=== PATIENT | male | born 1980 | race Caucasian/White ===

== ENCOUNTER → 2018-03-21 17:34 | Outpatient (CLI) | payer BC ==
[~2018-03-21 17:34] MED LIST: HYDROCODONE-APA1 TAB PO; LISINOPRIL5 MG PO; OMEPRAZOLE40 MG PO; PERCOCET 10/3251 TA1 PO
[2018-04-22 09:48] VITALS: BMI 39.2
== END | disposition home or self-care (01) ==
LOC: D.MRI 17:34
DX: M25.561 Pain in right knee (principal)

== ENCOUNTER 2018-04-22 09:05 | Day surgery (SDC) | payer MEDICAID ==
[2018-04-19 09:33] LABS: HEMATOCRIT 46.8 % (42.0-54.0); HEMOGLOBIN 16.7 g/dL (13.5-17.5); MCH 31.6 pg (26.0-34.0); MCHC 35.7 g/dL (31.0-37.0); MCV 88.5 fL (80.0-100.0); MEAN PLATELET VOLUME 9.7 fL (7.4-10.4); RBC 5.29 10x6/uL (4.20-6.10); RDW 13.4 % (11.5-14.5); WBC 10.7 10x3/uL (4.8-10.8)
[~2018-04-22] VITALS: Ht 170.2 cm; Wt 113.4 kg
--- NOTE | ~2018-04-22 | OP ---
PATIENT NAME: FRANKLYN BENITEZ MEDICAL RECORD: [id number] :76 LOCATION:[facility] ADMISSION DATE: SURGEON: CURTIS WISE MD DATE OF OPERATION: 04/22/2018 PREOPERATIVE DIAGNOSIS: Recurrent medial meniscus tear of the left knee. POSTOPERATIVE DIAGNOSIS: Recurrent medial meniscus tear of the left knee. PROCEDURE: Arthroscopic partial medial meniscectomy of the left knee. SURGEON: Curtis Wise MD ANESTHESIA: General. INTRAOPERATIVE COMPLICATIONS: None. 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 Lateral compartment and patellofemoral compartment were pristine. OPERATIVE SUMMARY IN DETAIL: After obtaining the appropriate preoperative orthopedic surgery consent as well as anesthetic consultation, evaluation and clearance, the patient was brought to the operating room and placed on the operating table in supine position. After general laryngeal mask was administered, tourniquet was placed about the proximal aspect of the left lower extremity. Left lower extremity was then prepped and draped in routine sterile fashion. The leg was elevated and exsanguinated, and tourniquet was inflated to 350 mmHg. Routine inferolateral portal was established followed by superomedial portal and inferomedial portal. Diagnostic arthroscopy did reveal the above findings. A combination of arthroscopic meniscotome as well as an arthroscopic resector utilized to debride the meniscus back to stable meniscal elements. Having completed this, the knee was insufflated with 30 cc of 0.25% Marcaine and 80 mg of Depo-Medrol. Arthroscopy portals were closed in routine interrupted fashion using 4-0 Prolene. Sterile dressings were applied. The patient was awakened and taken to the recovery room in stable condition. All final needle and sponge counts were correct. TRANSINT:[id number] Voice Confirmation ID: [id number] DOCUMENT ID: [id number] CURTIS WISE MD at 1147 CC: [id number] DICTATION DATE: 04/22/18 1207 SHIPPING AND RECEIVING ASSISTANT: 04/22/18 1251 DEP [facility] 04/22/18 [place] [address]
[~2018-04-22 09:05] MED LIST changes: -PERCOCET 10/3251 TA1 PO
[2018-04-22 09:48] VITALS: BP 139/80; Ht 170.2 cm; Wt 113.4 kg
[2018-04-22] MEDS ORDERED: PERCOCET 10/3251 TA1 PO (12:04)
[2018-05-22] MEDS ORDERED: BACLOFEN20 M1 PO (14:10)
== END 2018-04-22 14:30 | disposition home or self-care (01) ==
LOC: D.OPS 09:05 → D.PAN 10:30 → D.OPS 10:45 → D.PAN 10:45 → D.OPS 11:30
PROVIDERS: Anesthesiology
DX: S83.232A Complex tear of medial meniscus, current injury, left knee, initial encounter (principal); Z01.812 Encounter for preprocedural laboratory examination

== ENCOUNTER 2018-05-23 09:10 | Day surgery (SDC) | payer BC ==
[2018-05-22 14:40] LABS: HEMATOCRIT 46.4 % (42.0-54.0); HEMOGLOBIN 16.8 g/dL (13.5-17.5); MCH 31.8 pg (26.0-34.0); MCHC 36.2 g/dL (31.0-37.0); MCV 87.9 fL (80.0-100.0); MEAN PLATELET VOLUME 9.4 fL (7.4-10.4); RBC 5.28 10x6/uL (4.20-6.10); RDW 12.9 % (11.5-14.5)
[~2018-05-23] VITALS: Ht 170.2 cm; Wt 113.4 kg
--- NOTE | ~2018-05-23 | OP ---
PATIENT NAME: FRANKLYN BENITEZ MEDICAL RECORD: [id number] :78 LOCATION:[facility] ADMISSION DATE: SURGEON: CURTIS WISE MD DATE OF OPERATION: 05/23/2018 PREOPERATIVE DIAGNOSES: 1. Medial meniscus tear of the right knee. 2. Posttraumatic arthritis of the left knee. PROCEDURE: 1. Arthroscopic partial medial meniscectomy of the right knee. 2. Intra-articular injection of the left knee. SURGEON: Curtis Wise MD ANESTHESIA: General. INTRAOPERATIVE COMPLICATIONS: None. SUMMARY OF PATHOLOGIC FINDINGS: The patient had a complex tear of the posterior horn of medial meniscus consistent with the preoperative diagnosis. OPERATIVE SUMMARY IN DETAIL: After obtaining the appropriate preoperative orthopedic surgery consent as well as anesthetic consultation, evaluation, and clearance, the patient was brought to the operating room and placed on the operating table in supine position. After adequate general laryngeal mask airway was administered, the patient's left knee was prepped and draped in routine sterile fashion. A combination of 10 cc of 0.25% Marcaine with 80 mg of Depo-Medrol were injected in the patient's left knee. Bandage was applied. At this point, the patient's right lower extremity was then prepped and draped in routine sterile fashion after a tourniquet was placed about the proximal aspect. The leg was elevated and exsanguinated, tourniquet was inflated to 350 mmHg. Routine inferolateral portal was established followed by superomedial portal and inferomedial portal. On diagnostic arthroscopy, the patient has generalized chondromalacia of the entire knee joint, grade I most places. No areas of grade II or III were noted; however, he has significant inflammatory properties of the knee in its entirety. The medial meniscus had a deep complex tear of the posterior horn of the medial meniscus. Combination of arthroscopic meniscotomes as well as resector was utilized to debride the posterior aspect of the right medial meniscus. This was taken down to stable meniscal elements. At this point, the knee was insufflated with 30 cc of 0.25% Marcaine with epinephrine and 80 mg of Depo-Medrol. Arthroscopy portals were closed in routine interrupted fashion using 4-0 Prolene. Sterile dressings were applied. Tourniquet was deflated. The patient was awakened and taken to recovery room in stable condition. All final needle and sponge counts were correct. TRANSINT:[id number] Voice Confirmation ID: [id number] DOCUMENT ID: [id number] OPERATIVE REPORT [id number] FRANKLYN BENITEZ MD, CURTIS SOTELO at 1114 CC: [id number] DICTATION DATE: 05/24/18 1102 COPPER PLATE PRINTER: 05/24/18 1111 [facility] 05/23/18 [place] [id number]
[~2018-05-23 09:10] MED LIST changes: +BACLOFEN20 M1 PO; +PERCOCET 10/3251 TA1 PO
[2018-05-23 11:19] VITALS: BP 130/88; Ht 170.2 cm; Wt 113.4 kg
[2018-05-23] MEDS ORDERED: DILAUDID4 MG PO (13:33)
== END 2018-05-23 15:15 | disposition home or self-care (01) ==
LOC: D.OPS 09:10 → D.PAN 11:45 → D.OPS 15:15 → D.PAN 17:25 → D.OPS 17:45 → D.PAN 17:45
PROVIDERS: Anesthesiology
DX: S83.231A Complex tear of medial meniscus, current injury, right knee, initial encounter (principal); M12.562 Traumatic arthropathy, left knee; X58.XXXA Exposure to other specified factors, initial encounter; Z01.812 Encounter for preprocedural laboratory examination

== ENCOUNTER → 2018-07-30 14:16 | Outpatient (CLI) | payer BC ==
[2018-05-23 11:19] VITALS: BMI 39.2
[~2018-07-30 14:16] MED LIST changes: +DILAUDID4 MG PO; +ELIQUIS2.5 MG PO; -LISINOPRIL5 MG PO; +MOBIC7.5 MG PO; +NORCO 10-325 TA1 TAB PO; +ZESTRIL10 MG PO
== END | disposition home or self-care (01) ==
LOC: D.LABREF 14:16
DX: M17.0 Bilateral primary osteoarthritis of knee (principal); Z11.8 Encounter for screening for other infectious and parasitic diseases

== ENCOUNTER 2018-08-14 10:00 | Inpatient (IN) | payer BC ==
[~2018-08-14] VITALS: Ht 170.2 cm; Wt 113.6 kg
--- NOTE | ~2018-08-14 | OP ---
PATIENT NAME: FRANKLYN BENITEZ MEDICAL RECORD: [id number] :78 LOCATION:[id number] ADMISSION DATE:08/19/18 SURGEON: CURTIS WISE MD DATE OF OPERATION: 08/19/2018 PREOPERATIVE DIAGNOSIS: Bilateral osteoarthritis. POSTOPERATIVE DIAGNOSIS: Bilateral inflammatory arthritis. PROCEDURE: Bilateral total knee arthroplasty. SURGEON: Curtis Wise MD TUBE PULLER: Lázaro Paredes APN OPERATIVE SUMMARY IN DETAIL: After obtaining the appropriate preoperative orthopedic surgery consent as well as anesthetic consultation, evaluation, and clearance, the patient was brought to the operating room and placed on the operating table in supine position. After adequate general laryngeal mask airway was administered, tourniquet was placed on bilateral lower extremities. Bilateral lower extremities were then prepped and draped in routine sterile fashion. Attention was first turned to the right leg. The right leg was elevated and exsanguinated, tourniquet was inflated to 350 mmHg. Approach to the knee was done by Lázaro Paredes APN taking down for paramedian arthrotomy, which was performed. The patella was everted and the femur was flexed. At this point, surgical excision of all soft tissues was followed by creation of intramedullary guidewire for distal femoral cut. Distal femoral cut was made. This was followed by complete exposure of the proximal tibia. Further soft tissues were removed and intramedullary guide hole was created for intramedullary guided tibial cut. Tibial cut was then made. Appropriate measurements were made and the chamfer cuts of the distal femur were made. Having completed this, trials were put into place corresponding to the final implants. This was taken through range of motion and found to be good and stable in all planes. Having completed this, the final distal femoral and proximal tibial preparations were made for implants. Given the patient had an inflammatory component of arthritis; however, very good bone, I do feel like it was reasonable to resurface the patella. The patella was cut and prepared for final implantation. A press-fit total knee arthroplasty was then performed on these cuts. The final components were put into place. The knee was taken through range of motion and on the right side the patient had some maltracking of the patella. A lateral release was performed. Having completed this, copious irrigation was then followed by closure of the knee by Lázaro Paredes as well as closure of the skin with #1 Vicryl, 2-0 Vicryl, and skin saad. The paramedian arthrotomy was closed with #2 Ethibond. Having completed this temporary sterile dressings were placed on the knee. This side's tourniquet was deflated. Attention was then turned to the left lower extremity. Left lower extremity was elevated and exsanguinated, tourniquet was inflated to 350 mmHg. Routine midline incision was taken down for a paramedian arthrotomy, which was performed. The patella was everted and again the knee was exposed. Soft tissue excision was done in the usual fashion followed by creation of intramedullary guide hole for intramedullary guided distal femoral cut. Proximal tibia was completely exposed. Further soft tissue excision was then followed by intramedullary guided cut of the proximal tibia. Having completed this, chamfer cuts were made of the distal femur. The trials were put in OPERATIVE REPORT [id number] FRANKLYN BENITEZ corresponding to the final implants, taken through range of motion and found to be stable in all planes. Likewise final distal femoral and proximal tibial preparation was then followed by excision of the patellar surface for implantation. Final patellar preparations were followed by copious lavage of the knee. The bone ends were dried and the final components were press fit into place. Finally, the knee was taken through range of motion. Patellar tracking on this side actually was quite nice. Having completed this, the wound was copiously irrigated and closed using #2 Ethibond, #1 Vicryl, 2-0 Vicryl, and skin saad. Sterile dressings were applied. Permanent sterile dressings were placed on bilateral lower extremities. Tourniquet on the left side was lowered. The patient was then awakened and taken to recovery room in stable condition. All final needle and sponge counts were correct. TRANSINT:[id number] Voice Confirmation ID: [id number] DOCUMENT ID: [id number] FRANDY BELTRE, CURTIS SOTELO at 0840 CC: [id number] DICTATION DATE: 08/21/18 170 RFID DEVELOPER: 08/22/18 0025 ADM IN [place] [id number] [place] [address]
--- NOTE | ~2018-08-14 | MORECARE ---
CASE MANAGEMENT DISCHARGE SUMMARY PATIENT: FRANKLYN PADILLA UNIT: [id number] ADM DATE: 08/19/18 AGE: 37 : 78 SEX: M ROOM/BED: D.2212 AUTHOR: MINA,DOC PHYSICIAN: REFERRING PHYSICIAN: CURTIS WISE MD DATE OF SERVICE: 08/23/18 Discharge Plan Patient Name: FRANKLYN PADILLA Facility: [facility]:[place] : 1980 Planned Disposition: Home with Home Health Anticipated Discharge Date: Discharge Date: Expected LOS: Initial Reviewer: [email or web address] Initial Review Date: 08/19/2018 Generated: 08/23/18 2:34 pm Comments DCP- Discharge Planning Updated by [email or web address]: Christiane Bennett on 08/23/18 12:[address] PATIENT WILL BE PICKED UP AT 2:00 BY [facility]. PATIENT WILL BE GOING TO INPATIENT REHAB DCP- Discharge Planning Updated by [email or web address]: Christiane Bennett on 08/22/18 11:[address] PATIENT AND PT STATED THAT PATIENT WILL BE SAFER TO GO TO INPATIENT REHAB. [facility] DOES NOT ACCEPT THE PATIENT'S INSURANCE SO REFERRAL SENT TO [facility]. CM TO FOLLOW AND ASSIST DCP- Discharge Planning Updated by [email or web address]: Christiane Bennett on 08/22/18 10:[address] REFERRAL SENT TO [facility], I SPOKE WITH JACQUELINE AND TOLD HER WE ANTICIPATED DC TOMORROW. CM TO FOLLOW AND ASSIST WITH DC PLANNING DCP- Discharge Planning Updated by [email or web address]: Christiane Bennett on 08/20/18 4:[address] Patient Name: FRANKLYN PADILLA Admission Status: Elective Accout number: [id number] Admission Date: 08-19-2018 : 1980 Admission Diagnosis: Attending: CURTIS WISE Current LOS: 1 Anticipated DC Date: Planned Disposition: Home with Home Health Primary Insurance: [employer] EXCHANGE Discharge Planning Comments: CM met with patient to assess discharge planning needs. Patient stated that he plans to return home with his when he is discharged and would like to use [facility] KELLEN signed and placed in chart. He has crutches at home, but will need a walker, CPM x2 and BSC. CM will make sure that is set up prior to leaving. Patient's will be the one to take him home when he is discharged. CM will continue to follow and assist with DC planning Lean Manager: Christiane Bennett DCPIA - Discharge Planning Initial Assessment Updated by [email or web address]: Christiane Bennett on 08/20/18 5:15 pm * Is the patient Alert and Oriented? Yes * How many steps to enter\exit or inside your home? * PCP none * Pharmacy [facility] in [place] * Preadmission Environment Home with Family * ADLs Independent * Equipment Crutch * List name and contact numbers for known caregivers / representatives who currently or will assist patient after discharge: Kamini Padilla () [phone] * Verbal permission to speak to the caregivers and representatives has been obtained from the patient. N/A * Community resources currently utilized None * Additional services required to return to the preadmission environment? Yes * Can the patient safely return to the preadmission environment? Yes * Has this patient been hospitalized within the prior 30 days at any hospital? No Last DP export: 08/22/18 11:51 Patient Name: FRANKLYN PADILLA Page [id number] at 1334 All edits/amendments must be made on the electronic document DICTATION DATE: 08/23/181333 ENVIRONMENTAL HEALTH SAFETY MANAGER: RODRÍGUEZ 08/23/181333 RPT#: [id number] DC DATE: STATUS: ADM IN [facility] [address] [place] [address] END OF REPORT
--- NOTE | ~2018-08-14 | MORECARE ---
CASE MANAGEMENT DISCHARGE SUMMARY PATIENT: FRANKLYN PADILLA UNIT: [id number] ADM DATE: 08/19/18 AGE: 37 : 78 SEX: M ROOM/BED: D.2212 AUTHOR: MINA,DOC PHYSICIAN: REFERRING PHYSICIAN: CURTIS WISE MD DATE OF SERVICE: 08/22/18 Discharge Plan Patient Name: FRANKLYN PADILLA Facility: [facility]:[place] : 1980 Planned Disposition: Home with Home Health Anticipated Discharge Date: Discharge Date: Expected LOS: Initial Reviewer: [email or web address] Initial Review Date: 08/19/2018 Generated: 08/22/18 1:51 pm Comments DCP- Discharge Planning Updated by [email or web address]: Christiane Bnenett on 08/22/18 11:[address] PATIENT AND PT STATED THAT PATIENT WILL BE SAFER TO GO TO INPATIENT REHAB. [facility] DOES NOT ACCEPT THE PATIENT'S INSURANCE SO REFERRAL SENT TO [facility]. CM TO FOLLOW AND ASSIST DCP- Discharge Planning Updated by [email or web address]: Christiane Bennett on 08/22/18 10:[address] REFERRAL SENT TO [facility], I SPOKE WITH JACQUELINE AND TOLD HER WE ANTICIPATED DC TOMORROW. CM TO FOLLOW AND ASSIST WITH DC PLANNING DCP- Discharge Planning Updated by [email or web address]: Christiane Bennett on 08/20/18 4:[address] Patient Name: FRANKLYN PADILLA Admission Status: Elective Accout number: [id number] Admission Date: 08-19-2018 : 1980 Admission Diagnosis: Attending: CURTIS WISE Current LOS: 1 Anticipated DC Date: Planned Disposition: Home with Home Health Primary Insurance: [employer] TH EXCHANGE Discharge Planning Comments: CM met with patient to assess discharge planning needs. Patient stated that he plans to return home with his when he is discharged and would like to use [facility] KELLEN signed and placed in chart. He has crutches at home, but will need a walker, CPM x2 and BSC. CM will make sure that is set up prior to leaving. Patient's will be the one to take him home when he is discharged. CM will continue to follow and assist with DC planning Welding Machine Operator Plasma Arc: Christiane Bennett DCPIA - Discharge Planning Initial Assessment Updated by [email or web address]: Christiane Bennett on 08/20/18 5:15 pm * Is the patient Alert and Oriented? Yes * How many steps to enter\exit or inside your home? * PCP none * Pharmacy [facility] [place] * Preadmission Environment Home with Family * ADLs Independent * Equipment Crutch * List name and contact numbers for known caregivers / representatives who currently or will assist patient after discharge: Kamini Padilla () [phone] * Verbal permission to speak to the caregivers and representatives has been obtained from the patient. N/A * Community resources currently utilized None * Additional services required to return to the preadmission environment? Yes * Can the patient safely return to the preadmission environment? Yes * Has this patient been hospitalized within the prior 30 days at any hospital? No External Providers External Provider: [facility] Contact Date: Service Request Date: Service Type: Resolution: Reviewer: Comments: Last DP export: 08/22/18 10:03 Patient Name: FRANKLYN PADILLA Page [phone] at 1251 All edits/amendments must be made on the electronic document DICTATION DATE: 08/22/18 1251 LATIN DANCER: RODRÍGUEZ 08/22/18 1251 RPT#: [id number] DC DATE: STATUS: ADM IN [facility] [address] [place] [address] END OF REPORT
--- NOTE | ~2018-08-14 | MORECARE ---
CASE MANAGEMENT DISCHARGE SUMMARY PATIENT: FRANKLYN PADILLA UNIT: [id number] ADM DATE: 08/19/18 AGE: 37 : 78 SEX: M ROOM/BED: D.2212 AUTHOR: MINA,DOC PHYSICIAN: REFERRING PHYSICIAN: CURTIS WISE MD DATE OF SERVICE: 08/20/18 Discharge Plan Patient Name: FRANKLYN PADILLA Facility: [facility]:[place] : 1980 Planned Disposition: Home with Home Health Anticipated Discharge Date: Discharge Date: Expected LOS: Initial Reviewer: [email or web address] Initial Review Date: 08/19/2018 Generated: 08/20/18 6:26 pm Comments DCP- Discharge Planning Updated by [email or web address]: Christiane Bennett on 08/20/18 4:[address] Patient Name: FRANKLYN PADILLA Admission Status: Elective Accout number: [id number] Admission Date: 08-19-2018 : 1980 Admission Diagnosis: Attending: CURTIS WISE Current LOS: 1 Anticipated DC Date: Planned Disposition: Home with Home Health Primary Insurance: [employer] EXCHANGE Discharge Planning Comments: CM met with patient to assess discharge planning needs. Patient stated that he plans to return home with his when he is discharged and would like to use [facility] KELLEN signed and placed in chart. He has crutches at home, but will need a walker, CPM x2 and BSC. CM will make sure that is set up prior to leaving. Patient's will be the one to take him home when he is discharged. CM will continue to follow and assist with DC planning Guinea Pig Breeder: Christiane Bennett DCPIA - Discharge Planning Initial Assessment Updated by [email or web address]: Christiane Bennett on 08/20/18 5:15 pm * Is the patient Alert and Oriented? Yes * How many steps to enter\exit or inside your home? * PCP none * Pharmacy [facility] [place] * Preadmission Environment Home with Family * ADLs Independent * Equipment Crutch * List name and contact numbers for known caregivers / representatives who currently or will assist patient after discharge: Kamini Padilla () [phone] * Verbal permission to speak to the caregivers and representatives has been obtained from the patient. N/A * Community resources currently utilized None * Additional services required to return to the preadmission environment? Yes * Can the patient safely return to the preadmission environment? Yes * Has this patient been hospitalized within the prior 30 days at any hospital? No Patient Name: FRANKLYN PADILLA Page 57123 at 1726 All edits/amendments must be made on the electronic document DICTATION DATE: 08/20/181724 LOW EMISSION AUTOMOBILE DESIGNER: RODRÍGUEZ 08/20/181724 RPT#: [id number] DC DATE: STATUS: ADM IN [facility] [address] [place] [address] END OF REPORT
--- NOTE | ~2018-08-14 | MORECARE ---
CASE MANAGEMENT DISCHARGE SUMMARY PATIENT: FRANKLYN PADILLA UNIT: [id number] ADM DATE: 08/19/18 AGE: 37 : 76 SEX: M ROOM/BED: D.2212 AUTHOR: MINA,DOC PHYSICIAN: REFERRING PHYSICIAN: CURTIS WISE MD DATE OF SERVICE: 08/22/18 Discharge Plan Patient Name: FRANKLYN PADILLA Facility: [facility]:[place] : 1980 Planned Disposition: Home with Home Health Anticipated Discharge Date: Discharge Date: Expected LOS: Initial Reviewer: [email or web address] Initial Review Date: 08/19/2018 Generated: 08/22/18 12:02 pm Comments DCP- Discharge Planning Updated by [email or web address]: Christiane Bennett on 08/22/18 10:[address] REFERRAL SENT TO [facility], I SPOKE WITH JACQUELINE AND TOLD HER WE ANTICIPATED DC TOMORROW. CM TO FOLLOW AND ASSIST WITH DC PLANNING DCP- Discharge Planning Updated by [email or web address]: Christiane Bennett on 08/20/18 4:[address] Patient Name: FRANKLYN PADILLA Admission Status: Elective Accout number: [id number] Admission Date: 08-19-2018 : 1980 Admission Diagnosis: Attending: CURTIS WISE Current LOS: 1 Anticipated DC Date: Planned Disposition: Home with Home Health Primary Insurance: [employer] [facility] EXCHANGE Discharge Planning Comments: CM met with patient to assess discharge planning needs. Patient stated that he plans to return home with his when he is discharged and would like to use [facility] KELLEN signed and placed in chart. He has crutches at home, but will need a walker, CPM x2 and BSC. CM will make sure that is set up prior to leaving. Patient's will be the one to take him home when he is discharged. CM will continue to follow and assist with DC planning Child Welfare Social Worker: Christiane Bennett DCPIA - Discharge Planning Initial Assessment Updated by [email or web address]: Christiane Bennett on 08/20/18 5:15 pm * Is the patient Alert and Oriented? Yes * How many steps to enter\exit or inside your home? * PCP none * Pharmacy [facility] [place] * Preadmission Environment Home with Family * ADLs Independent * Equipment Crutch * List name and contact numbers for known caregivers / representatives who currently or will assist patient after discharge: Kamini Padilla () [phone] * Verbal permission to speak to the caregivers and representatives has been obtained from the patient. N/A * Community resources currently utilized None * Additional services required to return to the preadmission environment? Yes * Can the patient safely return to the preadmission environment? Yes * Has this patient been hospitalized within the prior 30 days at any hospital? No Last DP export: 08/20/18 4:26 Patient Name: FRANKLYN PADILLA Page 31348 at 1103 All edits/amendments must be made on the electronic document DICTATION DATE: 08/22/181101 FIRMWARE MANAGER: RODRÍGUEZ 08/22/181101 RPT#: [id number] DC DATE: STATUS: ADM IN [facility] [address] [place] [address] END OF REPORT
--- NOTE | ~2018-08-14 | MORECARE ---
CASE MANAGEMENT DISCHARGE SUMMARY PATIENT: FRANKLYN PADILLA UNIT: [id number] ADM DATE: 08/19/18 AGE: 37 : 76 SEX: M ROOM/BED: D.2212 AUTHOR: MINA,DOC PHYSICIAN: REFERRING PHYSICIAN: CURTIS WISE MD DATE OF SERVICE: 08/23/18 Discharge Plan Patient Name: FRANKLYN PADILLA Facility: [facility]:[place] : 1980 Planned Disposition: Home with Home Health Anticipated Discharge Date: Discharge Date: 08/23/2018 Expected LOS: Initial Reviewer: [email or web address] Initial Review Date: 08/19/2018 Generated: 08/23/18 4:05 pm Comments DCP- Discharge Planning Updated by [email or web address]: Christiane Bennett on 08/23/18 12:[address] PATIENT WILL BE PICKED UP AT 2:00 BY [facility]. PATIENT WILL BE GOING TO INPATIENT REHAB DCP- Discharge Planning Updated by [email or web address]: Christiane Bennett on 08/22/18 11:[address] PATIENT AND PT STATED THAT PATIENT WILL BE SAFER TO GO TO INPATIENT REHAB. [facility] DOES NOT ACCEPT THE PATIENT'S INSURANCE SO REFERRAL SENT TO [facility]. CM TO FOLLOW AND ASSIST DCP- Discharge Planning Updated by [email or web address]: Christiane Bennett on 08/22/18 10:[address] REFERRAL SENT TO [facility], I SPOKE WITH JACQUELINE AND TOLD HER WE ANTICIPATED DC TOMORROW. CM TO FOLLOW AND ASSIST WITH DC PLANNING DCP- Discharge Planning Updated by [email or web address]: Christiane Bennett on 08/20/18 4:[address] Patient Name: FRANKLYN PADILLA Admission Status: Elective Accout number: [id number] Admission Date: 08-19-2018 : 1980 Admission Diagnosis: Attending: CURTIS WISE Current LOS: 1 Anticipated DC Date: Planned Disposition: Home with Home Health Primary Insurance: [employer] Discharge Planning Comments: CM met with patient to assess discharge planning needs. Patient stated that he plans to return home with his when he is discharged and would like to use Count includes the [facility] KELLEN signed and placed in chart. He has crutches at home, but will need a walker, CPM x2 and BSC. CM will make sure that is set up prior to leaving. Patient's will be the one to take him home when he is discharged. CM will continue to follow and assist with DC planning Medical Staff Physician: Christiane Bennett DCPIA - Discharge Planning Initial Assessment Updated by [email or web address]: Christiane Bennett on 08/20/18 5:15 pm * Is the patient Alert and Oriented? Yes * How many steps to enter\exit or inside your home? * PCP none * Pharmacy [facility] in [place] * Preadmission Environment Home with Family * ADLs Independent * Equipment Crutch * List name and contact numbers for known caregivers / representatives who currently or will assist patient after discharge: Kamini Padilla () [phone] * Verbal permission to speak to the caregivers and representatives has been obtained from the patient. N/A * Community resources currently utilized None * Additional services required to return to the preadmission environment? Yes * Can the patient safely return to the preadmission environment? Yes * Has this patient been hospitalized within the prior 30 days at any hospital? No Last DP export: 08/23/18 12:34 Patient Name: FRANKLYN PADILLA Page [id number] at 1505 All edits/amendments must be made on the electronic document DICTATION DATE: 08/23/18 1505 CROWN BUFFER: [id number] 08/23/18 1505 RPT#: [id number] DC DATE:08/23/18 STATUS: DIS IN [facility] [address] [place] [address] END OF REPORT
[2018-08-14 09:07] LABS: BASOPHILS 0.3 % (0-2); EOSINOPHILS 2.8 % (0-7); HEMATOCRIT 45.3 % (42.0-54.0); HEMOGLOBIN 15.7 g/dL (13.5-17.5); IMMATURE GRANULOCYTES 0.6 % (0-5); LYMPHOCYTES 34.9 % (15-50); MCH 31.5 pg (26.0-34.0); MCHC 34.7 g/dL (31.0-37.0); MEAN PLATELET VOLUME 9.5 fL (7.4-10.4); MONOCYTES 6.8 % (2-11); NEUTROPHILS 54.6 % (40-80); PLATELET COUNT 243 10x3/uL (130-400); RBC 4.98 10x6/uL (4.20-6.10)
[2018-08-14 09:15] LABS: APTT 28.3 SECONDS (22.8-39.4); PROTIME 12.9 SECONDS (11.6-15.0)
[2018-08-14 09:16] LABS: CALC OSMOLALITY 279 mosm/kg (275-300); CARBON DIOXIDE 31.6 mmol/L (21.0-32.0); CHLORIDE - SERUM 103 mmol/L (98-107); CREATININE - SERUM 0.8 mg/dL (0.6-1.3); GLUCOSE 136 mg/dL (74-106); POTASSIUM - SERUM 4.6 mmol/L (3.5-5.1); SODIUM 139 mmol/L (136-145); UREA NITROGEN 13 mg/dL (7-18); eGFR NON AFRICAN AMERICAN > 90 mL/min (90-120)
[~2018-08-14 10:00] MED LIST changes: -ELIQUIS2.5 MG PO; -NORCO 10-325 TA1 TAB PO
[2018-08-14 10:14] LABS: APPEARANCE CLEAR (CLEAR); BILIRUBIN NEGATIVE (NEGATIVE); COLOR YELLOW (YELLOW); GLUCOSE NEGATIVE (NEGATIVE); KETONE NEGATIVE (NEGATIVE); NITRITE NEGATIVE (NEGATIVE); PROTEIN NEGATIVE (NEGATIVE); UROBILINOGEN NORMAL (NORMAL)
[2018-08-19] VITALS (10 sets, daily range): BP systolic 98–142; BP diastolic 65–100; Ht 170.2 cm; Wt 113.6 kg
[2018-08-20 00:35] VITALS: BP 134/74
[2018-08-20 05:49] LABS: HEMATOCRIT 38.3 % (42.0-54.0); HEMOGLOBIN 12.8 g/dL (13.5-17.5); MCH 30.5 pg (26.0-34.0); MCHC 33.4 g/dL (31.0-37.0); MCV 91.2 fL (80.0-100.0); MEAN PLATELET VOLUME 9.7 fL (7.4-10.4); RBC 4.2 10x6/uL (4.20-6.10); RDW 13.2 % (11.5-14.5)
[2018-08-20 06:35] VITALS: BP 128/72
[2018-08-20 08:36] VITALS: BP 127/80
[2018-08-20 11:46] VITALS: BP 122/78
[2018-08-20 17:52] VITALS: BP 132/78
[2018-08-20 20:00] VITALS: BP 140/84
[2018-08-21 04:00] VITALS: BP 127/76
[2018-08-21 04:49] LABS: HEMATOCRIT 39.7 % (42.0-54.0); HEMOGLOBIN 13.3 g/dL (13.5-17.5); MCH 30.7 pg (26.0-34.0); MCHC 33.5 g/dL (31.0-37.0); MCV 91.7 fL (80.0-100.0); MEAN PLATELET VOLUME 9.4 fL (7.4-10.4); RBC 4.33 10x6/uL (4.20-6.10); RDW 13.1 % (11.5-14.5)
[2018-08-21 04:55] LABS: WBC 11.6 10x3/uL (4.8-10.8)
[2018-08-21 08:30] VITALS: BP 134/73
[2018-08-21 08:53] VITALS: BP 135/79
[2018-08-21 13:26] VITALS: BP 124/71
[2018-08-21 16:08] VITALS: BP 134/82
[2018-08-22 01:37] VITALS: BP 126/79
[2018-08-22 06:06] VITALS: BP 116/68
[2018-08-22 09:14] VITALS: BP 129/77
[2018-08-22 12:41] VITALS: BP 113/67
[2018-08-22 16:48] VITALS: BP 99/72
[2018-08-22 20:00] VITALS: BP 125/76
[2018-08-23] VITALS: BP 121/65
[2018-08-23 04:00] VITALS: BP 111/62
[2018-08-23] MEDS ORDERED: NORCO 10-325 TA1 TAB PO (06:13)
[2018-08-23] MEDS ORDERED: ELIQUIS2.5 MG PO (06:13)
[2018-08-23 09:15] VITALS: BP 116/66
== END 2018-08-23 14:32 | DRG 462 ==
LOC: D.SDCHOLD 10:00 → D.MS 08-19 08:50 → D.SDCHOLD 08-19 08:50 → D.MS 08-19 15:09
PROVIDERS: Orthopaedic Surgery
PROC: 0SRC0JZ Replacement of Right Knee Joint with Synthetic Substitute, Open Approach (ICD-10-PCS; 2018-08-19)
PROC: 0SRD0JZ Replacement of Left Knee Joint with Synthetic Substitute, Open Approach (ICD-10-PCS; principal; 2018-08-19 11:00)
DX: M17.0 Bilateral primary osteoarthritis of knee (principal); I10 Essential (primary) hypertension

== ENCOUNTER → 2018-10-29 12:52 | Outpatient (CLI) | payer BC ==
[2018-08-19 16:54] VITALS: BMI 39.2
[~2018-10-29 12:52] MED LIST changes: +ELIQUIS2.5 MG PO; +NORCO 10-325 TA1 TAB PO
== END | disposition home or self-care (01) ==
LOC: D.MRI 12:52
DX: M54.16 Radiculopathy, lumbar region (principal)